=== PATIENT | female | born 1990 | race Caucasian/White ===

== ENCOUNTER 2016-09-13 08:25 | Emergency (ER) | payer BC ==
[~2016-09-13] VITALS: Ht 167.6 cm; Wt 86.2 kg
[2016-09-13] MEDS ORDERED: CITA40TA12 PO (09:05)
[2016-09-13] MEDS ORDERED: VENTOLIN HFA18 GM INH (09:05)
[2016-09-13] MEDS ORDERED: DEXT5TAB27 PO (09:05)
[2016-09-13] MEDS ORDERED: ZOLP5TAB PO (09:05)
--- NOTE | 2016-09-13 09:08 | PHYS DOC ---
Adult General Chief Complaint Chief Complaint: VAGINAL BLEEDING [facility] HPI Patient is a 26 year old female presenting to the emergency department for evaluation of bleeding in early . She says that her last period was on August 08. Patient reportedly had a positive test last night and this morning. She says that she was having some abdominal cramping in her lower abdomen and has had heavy vaginal bleeding since last night but it is slowing down currently. Patient denies any pain currently and she denies any fevers chills nausea vomiting or other systemic symptoms. She thinks her blood type is O+. Review of Systems Review of Systems Constitutional: Denies fever or chills [] Eyes: Denies change in visual acuity, redness, or eye pain [] HENT: Denies nasal congestion or sore throat [] Respiratory: Denies cough or shortness of breath [] Cardiovascular: No additional information not addressed in HPI [] GI: Denies abdominal pain, nausea, vomiting, bloody stools or diarrhea [] : Denies dysuria or hematuria [] Musculoskeletal: Denies back pain or joint pain [] Integument: Denies rash or skin lesions [] Neurologic: Denies headache, focal weakness or sensory changes [] Allergies Allergies Allergies Coded Allergies Type Severity Reaction Last Updated Verified No Known Drug Allergies 09/13/16 No Physical Exam Physical Exam Constitutional: Well developed, well nourished, no acute distress, non-toxic appearance. [] HENT: Normocephalic, atraumatic, bilateral external ears normal, oropharynx moist, no oral exudates, nose normal. [] Eyes: PERRLA, EOMI, conjunctiva normal, no discharge. [] Neck: Normal range of motion, no tenderness, supple, no stridor. [] Cardiovascular:Heart rate regular rhythm, no murmur [] Lungs & Thorax: Bilateral breath sounds clear to auscultation [] Abdomen: Bowel sounds normal, soft, no tenderness, no masses, no pulsatile masses. [] Skin: Warm, dry, no erythema, no rash. [] Back: No tenderness, no CVA tenderness. [] Extremities: No tenderness, no cyanosis, no clubbing, ROM intact, no edema. [] Neurologic: Alert and oriented X 3, normal motor function, normal sensory function, no focal deficits noted. [] Current Patient Data Vital Signs Vital Signs Date Time Temp Pulse Resp B/P (MAP) Pulse Ox O2 Delivery O2 Flow Rate FiO2 09/13/16 08:44 98.1 88 16 114/78 (90) 99 Room Air 98.1 Lab Values Laboratory Tests Test 09/13/16 09:14 White Blood Count 7.6 x10^3/uL (4.0-11.0) Red Blood Count 4.31 x10^6/uL (3.50-5.40) Hemoglobin 13.5 g/dL (12.0-15.5) Hematocrit 39.2 % (36.0-47.0) Mean Corpuscular Volume 91 fL (79-100) Mean Corpuscular Hemoglobin 31 pg (25-35) Mean Corpuscular Hemoglobin Concent 35 g/dL (31-37) Red Cell Distribution Width 12.7 % (11.5-14.5) Platelet Count 270 x10^3/uL (140-400) Neutrophils (%) (Auto) 68 % (31-73) Lymphocytes (%) (Auto) 20 % (24-48) L Monocytes (%) (Auto) 9 % (0-9) Eosinophils (%) (Auto) 2 % (0-3) Basophils (%) (Auto) 1 % (0-3) Neutrophils # (Auto) 5.1 x10^3uL (1.8-7.7) Lymphocytes # (Auto) 1.5 x10^3/uL (1.0-4.8) Monocytes # (Auto) 0.7 x10^3/uL (0.0-1.1) Eosinophils # (Auto) 0.2 x10^3/uL (0.0-0.7) Basophils # (Auto) 0.1 x10^3/uL (0.0-0.2) Urine Collection Type Unknown Urine Color Yellow Urine Clarity Clear Urine pH 6.0 Urine Specific [place] 1.020 Urine Protein Negative mg/dL (NEG-TRACE) Urine Glucose (UA) Negative mg/dL (NEG) Urine Ketones (Stick) Negative mg/dL (NEG) Urine Blood Large (NEG) Urine Nitrite Negative (NEG) Urine Bilirubin Negative (NEG) Urine Urobilinogen Dipstick 0.2 mg/dL (0.2 mg/dL) Urine Leukocyte Esterase Negative (NEG) Urine RBC 1-2 /HPF (0-2) Urine WBC Occ /HPF (0-4) Urine Squamous Epithelial Cells Many /LPF Urine Bacteria Few /HPF (0-FEW) Urine Mucus Marked /LPF Maternal Serum HCG Beta Subunit 164 mIU/mL (0-6) H Sodium Level 142 mmol/L (136-145) Potassium Level 3.8 mmol/L (3.5-5.1) Chloride Level 105 mmol/L (98-107) Carbon Dioxide Level 28 mmol/L (21-32) Anion Gap 9 (6-14) Blood Urea Nitrogen 16 mg/dL (7-20) Creatinine 0.8 mg/dL (0.6-1.0) Estimated GFR (Cockcroft-Gault) 85.4 BUN/Creatinine Ratio 20 (6-20) Glucose Level 85 mg/dL (70-99) Calcium Level 8.8 mg/dL (8.5-10.1) Magnesium Level 1.7 mg/dL (1.8-2.4) L Total Bilirubin 0.5 mg/dL (0.2-1.0) Aspartate Amino Transferase (AST) 14 U/L (15-37) L Alanine Aminotransferase (ALT) 14 U/L (14-59) Alkaline Phosphatase 48 U/L (46-116) Total Protein 6.7 g/dL (6.4-8.2) Albumin 3.7 g/dL (3.4-5.0) Albumin/Globulin Ratio 1.2 (1.0-1.7) Laboratory Tests 09/13/16 09:14 Laboratory Tests 09/13/16 09:14 EKG EKG [] Radiology/Procedures Radiology/Procedures Indication vaginal bleeding. The history of a positive urine test has been provided. No quantitative hCG value is available at the time of this interpretation. Initially transabdominal scans were obtained. Initial transabdominal scans were supplemented with transvaginal scans. The uterus measures approximately 7 x 5 x 3 cm. Endometrial thickness is approximately 5 mm. No IUP, yolk sac or gestational sac is seen. The ovaries appeared unremarkable. There is a minimal amount of fluid adjacent to the left ovary which is probably physiologic. IMPRESSION: Unremarkable study. No evidence of IUP. The ultrasound findings should be correlated with a quantitative hCG value. Diagnostic considerations would include early normal ,, recent miscarriage or ectopic DICTATED and SIGNED BY: RODRÍGUEZ MARTÍNEZ MD DATE: 09/13/16 1013 Course & Med Decision Making Course & Med Decision Making Will check labs and ultrasound and reassess. HCG level low. US ok, will send home with [employer] f/u. Patient aware and agreeable with plan. Dragon Disclaimer Dragon Disclaimer This electronic medical record was generated, in whole or in part, using a voice recognition dictation system. Departure Departure Impression: Primary Impression: Threatened in first trimester Disposition: 01 HOME, SELF-CARE Condition: GOOD Referrals: PHYLLIS MONAHAN MD Patient Instructions: Threatened Miscarriage AMADOR VALERO DO Sep 13, 2016 09:08
[2016-09-13 09:22] LABS: BASO # 0.1 x10^3/uL (0.0-0.2); BASO % 1 % (0-3); EOS % 2 % (0-3); HEMATOCRIT 39.2 % (36.0-47.0); HEMOGLOBIN 13.5 g/dL (12.0-15.5); LYMPH # 1.5 x10^3/uL (1.0-4.8); LYMPH % 20 % (24-48); MEAN CORPUSCULAR HEMOGLOBIN 31 pg (25-35); MEAN CORPUSCULAR HGB CONC 35 g/dL (31-37); MEAN CORPUSCULAR VOLUME 91 fL (79-100); MONO % 9 % (0-9); NEUT % 68 % (31-73); PLATELET COUNT 270 x10^3/uL (140-400); RED BLOOD COUNT 4.31 x10^6/uL (3.50-5.40); RED CELL DISTRIBUTION WIDTH 12.7 % (11.5-14.5); WHITE BLOOD COUNT 7.6 x10^3/uL (4.0-11.0)
[2016-09-13 09:24] LABS: BILIRUBIN,URINE NEGATIVE (NEG); GLUCOSE,URINE NEGATIVE (NEG); NITRITE,URINE NEGATIVE (NEG); PROTEIN,URINE NEGATIVE (NEG-TRACE); UROBILINOGEN,URINE 0.2 mg/dL (0.2 mg/dL)
[2016-09-13 09:35] LABS: CALCIUM 8.8 mg/dL (8.5-10.1); CREATININE 0.8 mg/dL (0.6-1.0); GFR 85.4; POTASSIUM 3.8 mmol/L (3.5-5.1)
[2016-09-13 09:38] LABS: BACTERIA,URINE FEW /HPF (0-FEW); SQUAMOUS EPITHELIAL CELL,UR MANY /LPF; WBC,URINE OCC /HPF (0-4)
[2016-09-13 09:41] LABS: ALBUMIN 3.7 g/dL (3.4-5.0); ALBUMIN/GLOBULIN RATIO 1.2 (1.0-1.7); MAGNESIUM 1.7 mg/dL (1.8-2.4); TOTAL BILIRUBIN 0.5 mg/dL (0.2-1.0); TOTAL PROTEIN 6.7 g/dL (6.4-8.2)
--- NOTE | 2016-09-13 10:19 | RAD ---
Indication vaginal bleeding. The history of a positive urine test has been provided. No quantitative hCG value is available at the time of this interpretation. Initially transabdominal scans were obtained. Initial transabdominal scans were supplemented with transvaginal scans. The uterus measures approximately 7 x 5 x 3 cm. Endometrial thickness is approximately 5 mm. No IUP, yolk sac or gestational sac is seen. The ovaries appeared unremarkable. There is a minimal amount of fluid adjacent to the left ovary which is probably physiologic. IMPRESSION: Unremarkable study. No evidence of IUP. The ultrasound findings should be correlated with a quantitative hCG value. Diagnostic considerations would include early normal ,, recent miscarriage or ectopic
[2016-09-13 13:12] VITALS: BP 113/70
== END 2016-09-13 13:12 | disposition home or self-care (01) ==
LOC: ER 08:25
DX: O20.0 Threatened abortion (principal); Z3A.00 Weeks of gestation of pregnancy not specified
CPT/HCPCS: 36415; 76801; 76817; 80053; 81001; 83735; 84702; 85027; 86850; 86900; 86901; 99285-25